=== PATIENT | female | born 1980 | race African-American/Black ===

== ENCOUNTER 2025-09-12 15:49 | Outpatient (CLI) | payer OTHER, SELFPAY ==
--- NOTE | ~2025-09-12 | MM_ITS ---
EXAMINATION: MM screening niya BI w chintan HISTORY: Screening TECHNIQUE: Craniocaudal and mediolateral oblique 3-D tomosynthesis images were obtained and synthetic 2-D images were generated. CAD analysis was submitted and interpreted. COMPARISON: None provided BREAST PARENCHYMAL COMPOSITION: The breasts are almost entirely fatty. FINDINGS: There is no evidence of suspicious mass, calcification, or architectural distortion to suggest malignancy in either breast. IMPRESSION: 1. No mammographic evidence of malignancy. 2. Recommend routine screening mammography in one year. BI-RADS Category 1: Negative Reviewed, dictated and finalized at location B. E ECOLOGIST
--- OUTSIDE RECORDS SUMMARY | 2025-09-12 21:02 | XMS_ITS | Encounter Summary ---
Author Organization [facility] Healthcare Address [address] [place] [address] Care Team Providers Care Cath Lab Radiological Technologist Name Role Phone Ling Zelaya MD Primary Care Provider [phone] Encounter Details Date Type Department Care Team (Late st Contact Info) Description 10/25/2024 Telephone [facility] Internal Medicine [address] [place] [phone] Ling Zelaya MD [address] [place] [id number] Social History Tobacco Use Types Packs/Day Years Used Date Smoking Tobacco: Never Smokeless Tobacco: Never AUDIT-C Answer Date Recorded Q1: How often do you have a drink containing alcohol? Never 08/01/2024 Q2: How many drinks containi ng alcohol do you have on a typical day when you are drinking? Patient does not drink Q3: How often do you have si x or more drinks on one occasion? Never 08/01/2024 PHQ-2 Answer Date Recorded PHQ-2 Total Score (If total score is 3 or more points, staff should administer the PHQ-9) 0 08/01/2024 Comments Unknown Sex and Gender Information Value Date Recorded Sex Assigned at Not on file Legal Sex Female 6:34 PM [employer] Gender Identity Female 01/15/2025 7:32 AM CDT Sexual Orientation Straight 01/15/2025 7: 32 AM CDT documented as of this encounter Miscellaneous Notes * Telephone Encounter - Radha Ku - 10/25/2024 9:38 AM CST [employer] documented in this encounter Plan of Treatment Not on file documented as of this encounter Visit Diagnoses Not on filedocumented in this encounter Care Teams Cath Lab Radiological Technologist Relationship Specialty Start Date End Date Ling Zelaya MD [id number] [facility] [address] [address] [place] [id number] PCP - General Internal Medicine 06/17/21 documented as of this encounter
--- OUTSIDE RECORDS SUMMARY | 2025-09-12 21:02 | XMS_ITS | Clinical Summary ---
Author Organization [facility] Office Center Address [address] [place] [address] Care Team Providers Care Field Representative/Health Education Name Role Phone Meet Zelaya MD Primary Care Provider [phone] Allergies Active Allergy Reactions Criticality Noted Date Comments Peg 3350-Electrolytes Rash Medium 05/02/2025 Red bumps on face. Mold Itching,Sneezing Low 08/02/2022 Ragweed Itching,Sneezing Low 08/02/2022 Medications cetirizine (ZyrTEC) 10 mg tablet Take 1 tablet (10 mg total) by mouth daily Active budesonide-fo rmoteroL (SYMBICORT) 160-4.5 mcg/actuation inhaler Inhale 2 puffs 2 (two) times a day Rinse mouth with water after use. Do not swallow. 1 each 5 01/27/20 23 Active albuterol HFA (PROVENTIL HFA,VENTOLIN HFA,PROAIR HFA) 90 mcg/actuation inhaler Inhale 2 puffs every 8 (eight) hours as needed for wheezing Every 4-6 hrs prn 1 each 2 10/25/20 24 Active albuterol 2.5 mg /3 mL (0.083 %) nebulizer solution Take 3 mL (2.5 mg total) by nebulization every 6 (six) hours as needed for wheezing 120 mL 3 10/26/20 24 Active spironolacton e (ALDACTONE) 50 mg tablet Take 1 tablet (50 mg total) by mouth daily 100 tablet 1 01/23/20 Active ondansetron (ZOFRAN) 4 mg tabletIndicat ions:Screenin g for colon cancer Take 1 tablet (4 mg total) by mouth every 8 (eight) hours as needed for nausea or vomiting 2 tablet 04/30/20 25 Active naproxen (NAPROSYN) 500 mg tablet Take 1 tablet (500 mg total) by mouth 2 (two) times a day as needed for pain (pain) 60 tablet 2 08/30/20 25 Active tirzepatide, weight loss, (Zepbound) 5 mg/0.5 mL pen injector Inject 0.5 mL (5 mg total) under the skin every 7 days 2 mL 3 08/30/20 Active ergocalcifero l (VITAMIN D) 50,000 unit capsule TAKE 1 CAPSULE BY MOUTH 1 TIME A WEEK 12 capsule 1 08/30/20 25 Active ergocalcifero l (VITAMIN D) 50,000 unit capsule TAKE 1 CAPSULE BY MOUTH 1 TIME A WEEK 12 capsule 1 10/29/20 24 025 Discontinued tirzepatide, weight loss, (Zepbound) 5 mg/0.5 mL pen injector Inject 0.5 mL (5 mg total) under the skin every 7 days 2 mL 3 08/30/20 25 025 Discontinued(R eojoeer) Active Problems Problem Noted Date Diagnosed Date Screening for colon cancer 04/30/2025 Colon cancer screening 04/17/2025 Dyslipidemia 08/01/2024 Assessment & Plan (01/22/2025 11:40 AM CDT): Patient has mildly elevated cholesterol. We discussed low-fat diet and exercise and weight loss on regular basis. Blood work is pending Assessment & Plan (08/01/2024 5:00 PM CDT): Patient has mildly elevated cholesterol. We discussed low-fat diet and exercise and weight loss on regular basis. Will repeat blood work again in few months BMI 37.0-37.9, adult 01/26/2023 Vitamin D deficiency 01/28/2022 Assessment & Plan (08/01/2024 4:59 PM CDT): Vitamin-D is 47. Continue vitamin-D once a week Assessment & Plan (01/26/2023 12:11 PM CDT): Vitamin-D is 17. She takes vitamin-D every other week. I told her take vitamin-D 82962 units weekly Assessment & Plan (08/02/2022 5:02 PM CDT): Continue vitamin-D once a week and will obtain vitamin-D level Assessment & Plan (01/28/2022 3:44 PM CDT): Continue vitamin-D once a week Herpes zoster without complication 11/17/2021 Assessment & Plan (11/17/2021 2:40 PM LAB ANIMAL TECHNICIAN): Patient will be started on Valtrex 1 g 3 times daily for 7 days and she will apply cortisone cream on the blisters. Avoid touching the blisters with the hand. Call us back for persistent symptoms Primary osteoarthritis of both knees 08/06/2021 Assessment & Plan (08/30/2025 12:16 PM CDT): Patient with chronic pain in the knees. They are tender with crepitus. Will obtain x-rays of the knees. Will start her on naproxen 500 mg b.i.d. PRN. Encouraged weight loss. Encouraged ambulation on regular basis. Patient may need to follow up with orthopedic doctor. Assessment & Plan (08/01/2024 4:58 PM CDT): Patient with osteoarthritis in the knees. Discussed the importance of weight loss to avoid further complications. Assessment & Plan (01/30/2024 4:47 PM CDT): Patient with osteoarthritis in the knees. Discussed the importance of weight loss to avoid further complications. Assessment & Plan (07/28/2023 5:04 PM CDT): Patient with osteoarthritis in the knees. Discussed the importance of weight loss to avoid further complications. Assessment & Plan (01/26/2023 12:10 PM CDT): Patient is currently asymptomatic Assessment & Plan (08/02/2022 5:01 PM CDT): Patient uses Voltaren gel with good results Assessment & Plan (01/28/2022 3:44 PM CDT): Continue to use Voltaren gel as needed and encouraged more weight loss Assessment & Plan (08/06/2021 4:58 PM CDT): Patient will continue to use Voltaren gel and she had good results with that and we discussed the importance of weight loss Morbid obesity 08/06/2021 Assessment & Plan (08/30/2025 12:16 PM CDT): Patient tried diet and exercise and phentermine and she is not able to lose weight. The patient likes to try GLP 1 agonist for weight loss. Will start her on Zepbound 5 mg once a week and side effects were explained. Assessment & Plan (01/22/2025 11:40 AM CDT): BMI Follow-up includes: nutrition counseling. The patient was advised to exercise 5 times a week for 30 minutes each time. We discussed low calorie diet. Discussed lifestyle changes. Discussed medications and bariatric surgery. Patient wants to try to lose weight on her own. Assessment & Plan (08/01/2024 4:58 PM CDT): BMI Follow-up includes: nutrition counseling. The patient was advised to exercise 5 times a week for 30 minutes each time. We discussed low calorie diet. Discussed lifestyle changes. Discussed medications and bariatric surgery. Patient wants to think about that Assessment & Plan (01/30/2024 4:47 PM CDT): Patient lost about 10 lb. We will refill Adipex for 2 months Assessment & Plan (07/28/2023 5:03 PM CDT): Patient gained weight. We discussed the importance of diet and exercise. She could not afford Wegovy. Will try her again on phentermine for 3 months. Discussed the importance of weight loss to avoid complications. Assessment & Plan (01/26/2023 12:10 PM CDT): Patient stated that she tried diet and exercise. She tried phentermine in the past. We will start her on Wegovy 0.5 mg once a week and side effects were explained and she understand that it may not be covered by her insurance Assessment & Plan (08/02/2022 5:01 PM CDT): BMI Follow-up includes: nutrition counseling. The patient was advised to exercise 5 times a week for 30 minutes each time. We discussed low calorie diet. Discussed lifestyle changes. Assessment & Plan (01/28/2022 3:44 PM CDT): Patient continues to lose weight. Will refill phentermine for 2 months Assessment & Plan (08/06/2021 4:59 PM CDT): BMI Follow-up includes: nutrition counseling. The patient was advised to exercise 5 times a week for 30 minutes each time. We discussed low calorie diet. Discussed lifestyle changes. Patient likes to try medications. Will start her on phentermine 37.5 mg once daily for 3 months and side effects including chest pain and palpitation explained to the patient and if she has any side effects she will stop the medication. Pain in both lower extremities 06/23/2021 Assessment & Plan (08/30/2025 12:16 PM CDT): Patient complains of pain in both lower extremities. Exam is normal. I think her pain is coming from her knees. Will obtain venous Doppler studies Assessment & Plan (08/01/2024 4:58 PM CDT): Patient complains of pain in the lower extremities with some swelling. I could not appreciate any swelling. She is on spironolactone. She has mild tenderness in the left calf area. Will obtain venous Doppler study of both legs Assessment & Plan (06/23/2021 12:36 PM CDT): Patient with pain in her knees and lower extremities. Could be secondary to osteoarthritis. Will obtain x-ray of both knees and arterial Doppler study of the lower extremities. She will try Voltaren gel twice daily as needed. BMI 40.0-44.9, adult 06/23/2021 Assessment & Plan (06/23/2021 12:36 PM CDT): BMI Follow-up includes: nutrition counseling. The patient was advised to exercise 5 times a week for 30 minutes each time. We discussed low calorie diet. Discussed lifestyle changes. Routine general medical exam ination at a [facility] 06/23/2021 Assessment & Plan (01/22/2025 11:39 AM CDT): Patient uses seatbelt. She is up-to-date with her vaccines. She is followed by chief psychology. Blood work result is pending. Discussed the importance of exercise 3 minutes daily. GI referral for colonoscopy. Patient does not smoke or drink alcohol. Assessment & Plan (01/30/2024 4:48 PM CDT): Patient uses seatbelt. She is up-to-date with her vaccines. She is followed by chief psychology. Blood work was ordered. Discussed the importance of exercise 3 minutes daily. Patient had flu vaccine. Patient does not smoke or drink alcohol. Assessment & Plan (06/23/2021 12:37 PM CDT): Patient uses seatbelt. She is up-to-date with her vaccines. She is followed by chief psychology. Blood work was ordered. Discussed the importance of exercise 3 minutes daily. Eczema 06/23/2021 Assessment & Plan (06/23/2021 12:37 PM CDT): Patient will apply hydrocortisone cream twice daily for few days and she will call for persistent symptoms Hypertension, essential 06/23/2021 Assessment & Plan (01/22/2025 7:55 AM CDT): Continue spironolactone Assessment & Plan (08/01/2024 4:57 PM CDT): Continue spironolactone Assessment & Plan (01/30/2024 4:47 PM CDT): Controlled on Aldactone Assessment & Plan (07/28/2023 5:03 PM CDT): Controlled on Aldactone Assessment & Plan (01/26/2023 12:10 PM CDT): Controlled on Aldactone Assessment & Plan (08/02/2022 5:01 PM CDT): Controlled on Aldactone Assessment & Plan (01/28/2022 3:44 PM CDT): Controlled on Aldactone Assessment & Plan (08/06/2021 4:58 PM CDT): Continue Aldactone Assessment & Plan (06/23/2021 12:38 PM CDT): The patient will continue spironolactone for the time being which will help with the leg edema as well. We discussed low-salt diet and weight loss Suprapubic pain 06/23/2021 Assessment & Plan (06/23/2021 12:39 PM CDT): Exam today was unremarkable. Patient was advised to follow-up with her chief psychology for this pain and if the workup is negative if she can let me know and see if other workup is needed Asthma Assessment & Plan (01/22/2025 7:54 AM CDT): Patient uses Symbicort. Patient will need to use albuterol nebulizer treatment every 6 hours p.r.n. Assessment & Plan (11/05/2024 12:05 PM LAB ANIMAL TECHNICIAN): Patient uses Symbicort. Patient will need to use albuterol nebulizer treatment every 6 hours p.r.n. Assessment & Plan (01/30/2024 4:47 PM CDT): Controlled on Symbicort. She uses albuterol inhaler on occasional basis Assessment & Plan (07/28/2023 5:04 PM CDT): Controlled on Symbicort Assessment & Plan (01/26/2023 12:10 PM CDT): Patient with increasing symptoms of asthma. She is not in respiratory distress. Will increase Symbicort to 160 mcg 2 puffs b.i.d. and rinse the mouth after each use and continue albuterol inhaler as needed. Assessment & Plan (08/02/2022 5:01 PM CDT): Patient with increased symptoms of asthma. We will start her on Symbicort 80 mcg 2 puffs b.i.d. and advised to rinse her mouth after each use. She will call for persistent symptoms Assessment & Plan (01/28/2022 3:44 PM CDT): Patient has mild asthma and she use Proventil inhaler on occasional basis Assessment & Plan (11/17/2021 2:40 PM LAB ANIMAL TECHNICIAN): Continue albuterol inhaler. Will start her on Medrol Dosepak. She will call for persistent symptoms Encounters Date Type Department Care Team Description 08/30/2025 3:30 PM CDT - 08/30/2025 11:59 PM CDT Hospital Encounter [facility] Diagnostic Imaging [facility] [place] [address] Primary osteoarthritis of both knees Discharge Disposition: Discharge to home or self care 08/30/2025 2:57 PM CDT - 08/30/2025 11:59 PM CDT Hospital Encounter [facility] Cardiac Testing [facility] [place] [address] Pain in both lower extremities Discharge Disposition: Discharge to home or self care 08/30/2025 10:30 AM CDT Office Visit [facility] Internal Medicine [address] [place] [id number] Meet Zelaya MD Primary osteoarthritis of both knees (Primary Dx); Pain in both lower extremities; Morbid obesity (HCC) 08/30/2025 Nurse Triage [facility] Internal Medicine [address] [place] [phone] Meet Zelaya MD from Last 3 Months Immunizations Immunization Administration Dates Next Due DTP 07/20/1985, 1,1980,1980, 0 Influenza, Unspecified 08/24/2024(Deferr ed: Patient decision),08/24/2023(Deferred: Patient decision),07/17/2021 MMR 06/26/1981 OPV 07/20/1985, 1,1980,1980, 0 Tdap 07/28/2023 Surgical History Surgery Date Site/Laterality Comments VAGINAL DELIVERY x2 Medical History Medical History Date Comments Asthma Allergic History of chicken pox Hypertension Family History Medical History Relation Name Comments Prostate cancer Father Diabetes Mother Hypertension Mother Stomach cancer Mother's Brother Relation Name Status Comments Father Alive Mother Alive Mother's Brother Social History Tobacco Use Types Packs/Day Years Used Date Smoking Tobacco: Never Smokeless Tobacco: Never Alcohol Use Standard Drinks/Week Comments Never 0 (1 standard drink = 0.6 oz pur e alcohol) PHQ-2 Answer Date Recorded PHQ-2 Total Score (If total score is 3 or more points, staff should administer the PHQ-9) 0 08/30/2025 AUDIT-C Answer Date Recorded Q1: How often do you have a drink containing alcohol? Never 08/30/2025 Q2: How many drinks containi ng alcohol do you have on a typical day when you are drinking? Patient does not drink Q3: How often do you have si x or more drinks on one occasion? Never 08/30/2025 Personal Safety Answer Date Recorded Have you ever been in or are you currently in a harmful physical or emotional relationship or is someone making you feel afraid or unsafe? Denies 05/07/2025 Comments Unknown Sex and Gender Information Value Date Recorded Sex Assigned at Not on file Legal Sex Female 6:34 PM LAB ANIMAL TECHNICIAN Gender Identity Female 01/15/2025 7:32 AM CDT Sexual Orientation Straight 01/15/2025 7: 32 AM CDT Last Filed Vital Signs Vital Sign Reading Time Taken Comments Blood Pressure 126/86 08/30/2025 11:00 AM CDT Pulse 80 08/30/2025 11:00 AM CDT Temperature 36.2 C (97.1 F) 08/30/2025 11:00 AM CDT Respiratory Rate 18 08/30/2025 11:0 0 AM CDT Oxygen Saturation 95% 08/30/2025 11: 00 AM CDT Inhaled Oxygen Concentration - - Weight 101.1 kg (222 lb 12.8 oz) 2024 11:00 AM CDT Height 157.5 cm (5' 2) 08/30/2025 11:0 0 AM CDT Body Mass Index 40.75 08/30/2025 11:00 AM CDT Plan of Treatment Health Maintenance Due Date Last Done Comments Cervical Cancer Screening 1980 Hepatitis C Screening 1980 Hepatitis B Screening 1998 Pneumococcal vaccine <65 (1 of 2 - PCV) 1999 HPV Vaccines (1 - 3-dose SCD M series) 2007 Breast Cancer Screening-Mammogram 05/27/2024 023, 08/26/2021 Influenza Vaccine (#1) 2025 07/17/2021 Regular Well Visit/Exam 18-64 01/22/2026, 01/30/2024, 06/23/2021 Depression Screening 08/30/2026 08/30/2025, 01/22/2025, 08/01/2024, Additional history exists DTaP/Tdap/Td Vaccine (7 - Td or Tdap) 07/28/2033 07/28/2023, 07/20/1985, 08/15/1981, Additional history exists Colon Cancer Screening-Colonoscopy 05/07/20352024 Medical Devices Implanted Type Area Mud Mill Tender Device Identifier Shelf Expiration Date Model / Serial / Lot Mirena Iud Cervix Procedures Procedure Name Priority Date/Time Associated Diagnosis Comments XR KNEE BILATERAL 4 OR MORE VIEWS Schedule Routine, Read Routine (OP Routine) 08/30/2025 4:10 PM CDT Primary osteoarthritis of both knees US VEIN DUPLEX LOWER EXTREMITY BILATERAL COMPLETE Schedule ARLEY, Read ARLEY (Appt Today, Awaiting Results) 08/30/2025 3:36 PM CDT Pain in both lower extremities COLONOSCOPY 05/07/2025 12:28 PM CDT HM MAMMOGRAPHY Routine 05/27/2023 from Last 3 Months or Most Recently Relevant to Health Maintenance Results * XR Knee Bilateral 4 or More Views (08/30/2025 4:10 PM CDT) Anatomical Region Laterality Modality Lower Extremities, Knee Computed Radiography 08/31/2025 8:52 AM CDT Impressions 08/31/2025 8:52 AM CDT 1. Mild bicompartmental bilateral knee osteoarthritis with small effusions. Electronically signed by: Fabrice Miranda M.D. Narrative 08/31/2025 8:52 AM CDT EXAMINATION: XR KNEE BILATERAL 4 OR MORE VIEWS HISTORY: pain. Knee osteoarthritis. FINDINGS: 4 views each knee submitted with comparison 06/26/2021. No acute fracture. Mild medial and patellofemoral bicompartmental bilateral knee osteoarthritis. Alignment is normal. Small knee effusions. Procedure Note Fabrice Miranda MD - 08/31/2025 EXAMINATION: XR KNEE BILATERAL 4 OR MORE VIEWS HISTORY: pain. Knee osteoarthritis. FINDINGS: 4 views each knee submitted with comparison 06/26/2021. No acute fracture. Mild medial and patellofemoral bicompartmental bilateral knee osteoarthritis. Alignment is normal. Small knee effusions. IMPRESSION: 1. Mild bicompartmental bilateral knee osteoarthritis with small effusions. Electronically signed by: Fabrice Miranda M.D. Meet Zelaya MD IMG XR PROCEDURES Final Res ult * US Vein Duplex Lower Extremity Bilateral Complete (08/30/2025 3:36 PM CDT) Anatomical Region Laterality Modality Vascular Bilateral Ultrasound 08/30/2025 3:05 PM CDT Narrative 09/02/2025 8:57 AM CDT Lower Extremity Venous Report Patient Name: DELFINO VARGAS K : 1980 (45y 7m) Sex: F Study Date: 08/30/2025 03:05:16 PM Crew Director: CHARISMA HOOPER Provider: MEET ZELAYA Quality: Adequate Ref Provider: MEET ZELAYA PROCEDURES: Vascular Report: A non-invasive vascular imaging study of the bilateral lower extremity veins was performed using B-mode ultrasound, color flow, and spectral Doppler. INDICATIONS: M79.604 Pain in right leg and M79.605 Pain in left leg. COMPARISONS: No change compared to prior study. The previous exam was completed on 11/16/24. FINDINGS: Bilateral: Negative for deep and superficial vein thrombosis in the lower extremities bilaterally. Right: Normal compressibility and color filling, spontaneous and phasic flow, and response to distal augmentation is demonstrated in the right common femoral vein, saphenofemoral junction, proximal femoral vein, mid femoral vein, distal femoral vein, popliteal vein, posterior tibial veins and peroneal veins. Left: Normal compressibility and color filling, spontaneous and phasic flow, and response to distal augmentation is demonstrated in the left common femoral vein, saphenofemoral junction, proximal femoral vein, mid femoral vein, distal femoral vein, popliteal vein, posterior tibial veins and peroneal veins. CONCLUSIONS: 1. There is no evidence of deep vein thrombosis in the lower extremities bilaterally. ATTESTATION: I have reviewed and interpreted the pertinent images and measurements of this study. I attest to the conclusions in the final report that is provided above. Electronically Signed By: Augustus Pat MD 09/02/2025 8:48:54 AM CDT Procedure Note Augustus Pat MD - 09/02/2025 Lower Extremity Venous Report Patient Name: DELFINO VARGAS K : 1980 (45y 7m) Sex: F Study Date: 08/30/2025 03:05:16 PM Crew Director: CHARISMA HOOPER Provider: MEET ZELAYA Quality: Adequate Ref Provider: MEET ZELAYA PROCEDURES: Vascular Report: A non-invasive vascular imaging study of the bilaterallower extremity veins was performed using B-mode ultrasound, color flow, and spectralDoppler. INDICATIONS: M79.604 Pain in right leg and M79.605 Pain in left leg. COMPARISONS: No change compared to prior study. The previous exam was completed on11/16/24. FINDINGS: Bilateral: Negative for deep and superficial vein thrombosis in the lowerextremities bilaterally. Right: Normal compressibility and color filling, spontaneous and phasicflow, and response to distal augmentation is demonstrated in the right commonfemoral vein, saphenofemoral junction, proximal femoral vein, mid femoral vein, distalfemoral vein, popliteal vein, posterior tibial veins and peroneal veins. Left: Normal compressibility and color filling, spontaneous and phasicflow, and response to distal augmentation is demonstrated in the left common femoral vein,saphenofemoral junction, proximal femoral vein, mid femoral vein, distal femoral vein,popliteal vein, posterior tibial veins and peroneal veins. CONCLUSIONS: 1. There is no evidence of deep vein thrombosis in the lower extremitiesbilaterally. ATTESTATION: I have reviewed and interpreted the pertinent images and measurements ofthis study. I attest to the conclusions in the final report that is provided above. Electronically Signed By: Augustus Pat MD 09/02/2025 8:48:54 AM CDT Meet Zelaya MD [facility] PROCEDURES Final Res ult * Colonoscopy (05/07/2025 12:28 PM CDT) Anatomical Region Laterality Modality Other Narrative Procedure Note Leonel Vang MD - 05/07/2025 12:28 PM CDT [facility] GI ENDOSCOPY Patient Name: Delfino Vargas Procedure Date: 05/07/2025 12:28 PM Date of : 1980 Admit Type: Outpatient Age: 45 Gender: Female Attending MD: Leonel Vang M.D. Room: [facility] ENDOSCOPY ROOM 04 Note Status: Finalized Procedure: Colonoscopy Indications: Screening for colorectal malignant neoplasm,average risk Referring MD: Providers: Leonel Vang M.D. Medicines: See the Anesthesia note for documentation of the administered medications Complications: No immediate complications. Estimated Blood Loss: Estimated blood loss was minimal. Procedure: Pre-Anesthesia Assessment: - Prior to the procedure, a History and Physicalwas performed, and patient medications and allergieswere reviewed. The risks and benefits of the procedureand the sedation options and risks were discussed withthe patient. All questions were answered and informed consent was obtained. Patient identification and proposed procedure were verified. After reviewingthe risks and benefits, the patient was deemed in satisfactory condition to undergo the procedure.The anesthesia plan was to use monitored anesthesiacare (MAC). Immediately prior to administration of medications, the patient was re-assessed foradequacy to receive sedatives. The heart rate, respiratory rate, oxygen saturations, blood pressure, adequacyof pulmonary ventilation, and response to care were monitored throughout the procedure. The physical status of the patient was re-assessed after the procedure. The benefits, risks and alternatives of theprocedure and sedation were discussed and informed consentwas obtained. All questions were answered. Please referto the signed informed consent document in the medical record. The scope was passed under direct vision.The [id number] colonoscope was introduced through theanus and advanced to the cecum, identified byappendiceal orifice and ileocecal valve. The colonoscopy was performed without difficulty. The patient tolerated the procedure well. The quality of the bowel preparation was good. Scope insertion time was 3 minutes. Scope withdrawal time was 14 minutes. Prep was administered in a split dose. Findings: The perianal and digital rectal examinations were normal. The colon (entire examined portion) appeared normal. Internal hemorrhoids were found. The hemorrhoids were small. Impression: - The entire examined colon is normal. - Internal hemorrhoids. - No specimens collected. Recommendation: - Resume previous diet today. - Discharge patient to home. - Patient has a contact number available for emergencies. The signs and symptoms of potential delayed complications were discussed with thepatient. Return to normal activities tomorrow. Written discharge instructions were provided to thepatient. - Repeat colonoscopy in 10 years for screening purposes. - I would be happy to see you in my GI clinic ifyou have further questions or concerns or if symptoms progress Leonel Vang M.D. 05/07/2025 12:59:48 PM Number of Addenda: 0 Note Initiated On: 05/07/2025 12:28 PM Recognized by the [employer] for promoting [facility] endoscopy Leonel Vang MD ENDOSCOPY PROCEDURES Kaila l Result * HM MAMMOGRAPHY (05/27/2023) Historical Provider HEALTH MAINTENANCE Final Result from Last 3 Months or Most Recently Relevant to Health Maintenance Insurance [facility] CHOICE [facility] H[facility]/PPO Address: [facility] [address] [place] [address] Care Teams Field Representative/Health Education Relationship Specialty Start Date End Date Meet Zelaya MD [address] [facility] [place] [address] PCP - General Internal Medicine 06/17/21
--- OUTSIDE RECORDS SUMMARY | 2025-09-12 21:02 | XMS_ITS | Clinical Summary ---
Author Organization [facility] Address [facility] [place] [address] Care Team Providers Care Computational Mathematician Name Role Phone Ulises Gayle MD Primary Care Provider [phone] Social History Tobacco Use Types Packs/Day Years Used Date Smoking Tobacco: Never Assessed Comments Unknown Sex and Gender Information Value Date Recorded Sex Assigned at Not on file Legal Sex Female 8:32 PM CDT Gender Identity Not on file Sexual Orientation Not on file Plan of Treatment Health Maintenance Due Date Last Done Comments Cervical Cancer Screening Pa p Smear (Age 30 to 64) Every 3 Years 1980 Colorectal Cancer Screening Colonoscopy (10 Years) 1980 Annual Physical 1983 Hepatitis C 1998 DTaP, Tdap and Td Vaccines ( 1 - Tdap) 1999 Hepatitis B Vaccines (1 of 3 - 19+ 3-dose series) 1999 HPV Vaccines (1 - 3-dose SCD M series) 2007 Cervical Cancer Screening Pa p with HPV Testing (Age 30 to 64) Every 5 Years 2010 Cervical Cancer Screening with HPV 2010 Mammogram Screening 2020 COVID-19 Vaccine (2024-2 6 season) 2025 Influenza Adult (#1) 2025 Hepatitis A Vaccines Aged Out No long er eligible based on patient's age to complete this topic Meningococcal B Vaccine Aged Out No l onger eligible based on patient's age to complete this topic Meningococcal Vaccine Aged Out No rashaad ibeth eligible based on patient's age to complete this topic Pneumococcal Vaccine: Pediat rics (0 to 5 Years) and At-Risk Patients (6 to 49 Years) Aged Out No longer eligible b ased on patient's age to complete this topic RSV Immunizations Under 20 Months Aged Out No longer eligible based on patient's age to complete this topic Care Teams Computational Mathematician Relationship Specialty Start Date End Date Ulises Gayle MD [address] [place] [address] PCP - General 08/23/13
--- OUTSIDE RECORDS SUMMARY | 2025-09-12 21:03 | XMS_ITS | Patient Health Record ---
Author Organization [facility] Address [address] [place], [place] [id number] Care Team Providers Care Cafeteria Worker Name Role Phone ABHIJEET SANCHEZ Unavailable [phone] Ulises Gayle Unavailable Unavailable Reason For Referral No Information Social History Social History Additional Details Category Social Info Options Details Migrated Social History Migrated Social History History of tobacco use : , Smoking Status : Never smoked Plan Of Treatment No Information Insurance Providers Payer Name Payer Address Payer Phone Subscriber Number Group Number Insured Name Patient Relationship to Insured Coverage Start Date Coverage End Date [facility] ([facility]) ATTN CLAIMS [address] [place] [address] [id number] DELFINO KWAN Self - patient is the insured
== END 2025-09-12 15:50 | disposition home or self-care (01) ==
PROVIDERS: PCP Internal Medicine; Visit Provider Obstetrics & Gynecology
DX: Z12.31 Encounter for screening mammogram for malignant neoplasm of breast (principal)
CPT/HCPCS: 77063; 77067